=== PATIENT | male | born 1955 | race Caucasian/White ===

== ENCOUNTER → 2019-06-25 | Day surgery (SDC) | payer OTHER ==
[~2019-06-25] MED LIST: ALLO100T PO; BENA20TA16 PO; CARV25TA2 PO; IV RINGERS,LACTATED 1000ML 1,000 ML IV SCH; LIDOCAINE 2% PF 5 ML VIAL. ONE; PROPOFOL 40 ML IV ONE; TRIA1CAP3 PO
--- NOTE | 2019-06-25 08:12 | CONS ---
DATE OF CONSULTATION: 06/25/2019 REFERRING PHYSICIAN: Rebecca Duval M.D. REASON FOR CONSULTATION: Colorectal screening. HISTORY OF PRESENT ILLNESS: This is a 63-year-old male with past medical history significant for gouty arthritis, hypertension, status post tonsillectomy, eye surgery and hernia surgery, is seen for interval colonoscopy. Last exam was done approximately 10 years ago, which was unrevealing at that time. There has been no melena and/or hematochezia. Weight and appetite are stable. No change in bowel habits. No family history of colon cancer. He is otherwise without additional complaints. PAST MEDICAL HISTORY: Hypertension, gouty arthritis, status post eye surgery, hernia surgery and tonsillectomy. ALLERGIES: None. MEDICATIONS: Include allopurinol 100 mg daily, Lotensin 20 mg daily, carvedilol 25 mg b.i.d., and triamterene/hydrochlorothiazide 1 daily. FAMILY HISTORY: Significant for high blood pressure with multiple family members, diabetes with brother as well as heart attacks with father and brother, sister. SOCIAL HISTORY: He is a nonsmoker, social drinker. REVIEW OF SYSTEMS: HEENT: There is no decrease in visual acuity issues. CARDIAC: There is a history of hypertension. PULMONARY: No shortness of breath, productive cough or asthma. RENAL: No dysuria, frequency, hematuria. NEUROLOGIC: No stroke, migraine, neuropathy. PSYCHIATRIC: No mood swings, depression, insomnia. HEMATOLOGIC: No bleeding, bruising, coagulopathy. DERMATOLOGIC: No skin rashes or pruritus. MUSCULOSKELETAL: History of gout. GASTROINTESTINAL: See history of present illness. PHYSICAL EXAMINATION: GENERAL: Reveals a well-nourished, well-developed male, who is alert, cooperative, in no acute distress. VITAL SIGNS: Temperature 97.8, pulse 67, respirations 18. HEENT: Reveals normocephalic, atraumatic head. Pupils and extraocular muscles are not tested. Sclerae anicteric. NECK: Supple. LUNGS: Clear. CARDIOVASCULAR: Reveals an S1, S2 without S3, S4 or appreciable murmur. ABDOMEN: Soft abdomen, normal bowel sounds, without appreciable hepatosplenomegaly. EXTREMITIES: Reveals no cyanosis, clubbing or edema. IMPRESSION: Colorectal screening is warranted at this time. Risks and benefits of procedure including risk of hemorrhage and perforation requiring operation were discussed with the patient and is willing to proceed at this time. ALICIA EUBANKS MD DR: KYLE/minerva JOB#: [id number] / [id number] REBECCA Westfall MD
[2019-06-25 08:24] VITALS: BP 125/80
== END ==
LOC: SURG 06:33
PROVIDERS: ATTEND Internal Medicine Gastroenterology
DX: Z12.11 Encounter for screening for malignant neoplasm of colon (principal); K57.30 Diverticulosis of large intestine without perforation or abscess without bleeding; K64.0 First degree hemorrhoids; M10.9 Gout, unspecified; I10 Essential (primary) hypertension; Z98.890 Other specified postprocedural states; Z72.89 Other problems related to lifestyle; Z87.39 Personal history of other diseases of the musculoskeletal system and connective tissue
CPT/HCPCS: 45378; J2001; J2704